=== PATIENT | male | born 1960 | race Caucasian/White ===

== ENCOUNTER 2019-10-27 09:06 | Outpatient (CLI) | payer OTHER, SELFPAY | END 2019-10-27 09:07 | disposition home or self-care (01) | LOC: WOUND 09:08 | PROVIDERS: Family Provider Internal Medicine; PCP Internal Medicine; Visit Provider Nurse Practitioner Family | DX: E11.622 Type 2 diabetes mellitus with other skin ulcer (principal); L97.812 Non-pressure chronic ulcer of other part of right lower leg with fat layer exposed | CPT/HCPCS: 11042 ==

== ENCOUNTER 2019-11-03 09:11 | Outpatient (CLI) | payer OTHER, SELFPAY | END 2019-11-03 09:12 | disposition home or self-care (01) | LOC: WOUND 09:12 | PROVIDERS: Family Provider Internal Medicine; PCP Internal Medicine; Visit Provider Nurse Practitioner Family | DX: E11.622 Type 2 diabetes mellitus with other skin ulcer (principal); L97.812 Non-pressure chronic ulcer of other part of right lower leg with fat layer exposed | CPT/HCPCS: 11042 ==

== ENCOUNTER 2019-11-10 09:01 | Outpatient (CLI) | payer OTHER, SELFPAY | END 2019-11-10 09:02 | disposition home or self-care (01) | LOC: WOUND 09:02 | PROVIDERS: Family Provider Internal Medicine; PCP Internal Medicine; Visit Provider Nurse Practitioner Family | DX: E11.622 Type 2 diabetes mellitus with other skin ulcer (principal); L97.812 Non-pressure chronic ulcer of other part of right lower leg with fat layer exposed | CPT/HCPCS: 11042 ==

== ENCOUNTER 2019-12-08 13:54 | Outpatient (CLI) | payer OTHER, SELFPAY | END 2019-12-08 13:55 | disposition home or self-care (01) | LOC: WOUND 13:57 | PROVIDERS: Family Provider Internal Medicine; PCP Internal Medicine; Visit Provider Nurse Practitioner Family | DX: Z09 Encounter for follow-up examination after completed treatment for conditions other than malignant neoplasm (principal) | CPT/HCPCS: 99212 ==

== ENCOUNTER 2020-08-17 10:40 | Outpatient (CLI) | payer OTHER, SELFPAY | END 2020-08-17 10:41 | disposition home or self-care (01) | LOC: SPT 10:40 | PROVIDERS: Family Provider Internal Medicine; PCP Family Medicine; Visit Provider Podiatrist Foot & Ankle Surgery | DX: Z46.89 Encounter for fitting and adjustment of other specified devices (principal); L97.522 Non-pressure chronic ulcer of other part of left foot with fat layer exposed; M21.40 Flat foot [pes planus] (acquired), unspecified foot; L60.3 Nail dystrophy; I73.9 Peripheral vascular disease, unspecified; E11.42 Type 2 diabetes mellitus with diabetic polyneuropathy | CPT/HCPCS: 97760; L4361 ==